=== PATIENT | female | born 1940 | race Caucasian/White ===

== ENCOUNTER → 2018-05-21 | Outpatient (CLI) | payer MEDICARE ==
--- NOTE | 2018-05-21 15:45 | RADIOLOGY REPORT (SQ) ---
EXAM DESCRIPTION: CHEST 2 VIEWS COMPLETED DATE/TIME: 05/21/2018 3:18 pm REASON FOR STUDY: R06.2 WHEEZING R06.2 WHEEZING R06.2 WHEEZING R06.2 WHEEZING COMPARISON: None. NUMBER OF VIEWS: Two view. TECHNIQUE: Frontal and lateral radiographic views of the chest acquired. LIMITATIONS: None. FINDINGS: LUNGS AND PLEURA: Diffuse interstitial prominence. Possible faint density in the lateral left mid lung. No masses or pneumothorax. No pleural effusion. Attenuated blood vessels and flattene d jonna-diaphragms. MEDIASTINUM AND HILAR STRUCTURES: No masses. No contour abnormalities. HEART AND VASCULAR STRUCTURES: Heart normal in size and contour. No evidence for failure. BONES: No acute findings. HARDWARE: None in the chest. OTHER: No other significant finding. IMPRESSION: COPD. PRESUMED CHRONIC INTERSTITIAL CHANGES. POSSIBLE FAINT EARLY INFILTRATE IN THE LA TERAL LEFT LUNG. TECHNICAL DOCUMENTATION: JOB ID: [id number] [employer]- All Rights Reserved Reading location - IP/workstation name: [email or web address]
[2018-05-21 15:47] LABS: HEMATOCRIT 30.4 % (36.0-47.0); HEMOGLOBIN 10.5 g/dL (12.0-15.5); MEAN CORPUSCULAR HEMOGLOBIN 32.6 pg (27.0-33.4); MEAN CORPUSCULAR HGB CONC 34.7 g/dL (32.0-36.0); MEAN CORPUSCULAR VOLUME 94 fl (80-97); PLATELET COUNT 249 10^3/uL (150-450); RED BLOOD COUNT 3.23 10^6/uL (3.72-5.28); RED CELL DISTRIBUTION WIDTH 14.2 % (11.5-14.0); WHITE BLOOD COUNT 14.3 10^3/uL (4.0-10.5)
[2018-05-21 16:06] LABS: ALANINE AMINOTRANSFERASE 29 U/L (9-52); ALBUMIN 3.8 g/dL (3.5-5.0); ALKALINE PHOSPHATASE 87 U/L (38-126); ANION GAP 15 (5-19); ASPARTATE AMINO TRANSFERASE 27 U/L (14-36); BILIRUBIN,DIRECT 0.8 mg/dL (0.0-0.4); BILIRUBIN,TOTAL 1.3 mg/dL (0.2-1.3); BLOOD UREA NITROGEN 20 mg/dL (7-20); CALCIUM 8.7 mg/dL (8.4-10.2); CARBON DIOXIDE 22 mmol/L (22-30); CHLORIDE 104 mmol/L (98-107); GLUCOSE 129 mg/dL (75-110); POTASSIUM 4.4 mmol/L (3.6-5.0); SODIUM 140.5 mmol/L (137-145); TOTAL PROTEIN 7.5 g/dL (6.3-8.2)
== END ==
LOC: LAB 15:20
PROVIDERS: ATTEND Nurse Practitioner Family
DX: J44.9 Chronic obstructive pulmonary disease, unspecified (principal); R06.2 Wheezing
CPT/HCPCS: 36415; 71046; 80053; 83880; 85027; 87040

== ENCOUNTER → 2018-06-03 | Outpatient (CLI) | payer MEDICARE ==
--- NOTE | 2018-06-03 12:43 | RADIOLOGY REPORT (SQ) ---
EXAM DESCRIPTION: CHEST 2 VIEWS COMPLETED DATE/TIME: 06/03/2018 10:37 am REASON FOR STUDY: CHF (I50.9) I50.9 HEART FAILURE, UNSPECIFIED COMPARISON: 05/21/2018 NUMBER OF VIEWS: Two view. TECHNIQUE: Frontal and lateral radiographic views of the chest acquired. LIMITATIONS: None. FINDINGS: LUNGS AND PLEURA: Trace of fluid in the left major fissure. No evidence of pulmonary dayanara a or pneumonia. Attenuated blood vessels and flattened jonna-diaphragms. MEDIASTINUM AND HILAR STRUCTURES: No masses. No contour abnormalities. HEART AND VASCULAR STRUCTURES: Stable cardiomegaly. No evidence for failure. BONES: No acute findings. HARDWARE: None in the chest. OTHER: No other significant finding. IMPRESSION: COPD. NO ACUTE RADIOGRAPHIC FINDING IN THE CHEST. TECHNICAL DOCUMENTATION: JOB ID: [id number] [employer]- All Rights Reserved Reading location - IP/workstation name: [email or web address]
== END ==
LOC: RAD 10:17
PROVIDERS: ATTEND Nurse Practitioner Family
DX: I50.9 Heart failure, unspecified (principal); J44.9 Chronic obstructive pulmonary disease, unspecified
CPT/HCPCS: 71046

== ENCOUNTER 2018-09-19 07:42 | Day surgery (SDC) | payer MEDICARE ==
[~2018-09-19 07:42] MED LIST: PROPOFOL INJ 200 MG/20 ML VIAL IV ONE
[2018-09-19 08:55] LABS: POTASSIUM 4.4 mmol/L (3.6-5.0)
[2018-09-19] MEDS ORDERED: ALBUTEROL SULFATE 0.083% NEB 2.5 MG/3 ML AMPUL NEB ONE (09:01)
[2018-09-19] MEDS ORDERED: ONDANSETRON HCL INJ/PF 4 MG/2 ML SDV IV PRN (10:11)
[2018-09-19] MEDS ORDERED: PROMETHAZINE HCL INJ 25 MG/1 ML VIAL IV PRN ×2 (10:11)
[2018-09-19] MEDS ORDERED: FENTANYL CITRATE INJ/PF 100 MCG/2 ML AMPUL IV PRN ×3 (10:11)
[2018-09-19] MEDS ORDERED: DIPHENHYDRAMINE HCL 50 MG/ML VIAL IV PRN (10:11)
[2018-09-19] MEDS ORDERED: MEPERIDINE HCL/PF INJ 25 MG/1 ML DISP.SYRIN IV PRN (10:11)
[2018-09-19] MEDS ORDERED: PROPOFOL INJ 200 MG/20 ML VIAL IV ONE (10:37)
--- NOTE | 2018-09-19 11:51 | Operative Report ---
Operative Report DATE OF SURGERY: 09/19/18 Operative Report: The risks, benefits and alternatives of the procedure including the risk of bleeding, perforation requiring surgery are explained to the patient in detail and informed consent is obtained. Patient is placed in the left, lateral decubital position. Timeout was called. Propofol medication is administered. A rectal examination is done which did not reveal any masses, tears or fissures. An Olympus videoscope was introduced into the patient's rectum. The scope was then carefully advanced all the way to the cecum. The cecum was identified by the usual anatomical landmarks including the ileocecal valve as well as the appendiceal office. Photodocumentation is obtained. The scope was then sequentially pulled back via the rest segments of the colon including the ascending colon, hepatic flexure, transverse colon, splenic flexure, descending colon and finally into the rectosigmoid portions of the colon. Retroflexion maneuver is performed. PREOPERATIVE DIAGNOSIS: Fecal abnormalities noted in stool positive cologuard test POSTOPERATIVE DIAGNOSIS: 3 hepatic flexure polyps to remove via snare polypectomy. Diverticulosis. Internal hemorrhoids. Mild inflammation noted on the left side of the colon status post biopsy. Retroflexion maneuver was unable to be done due to the lack of rectal distention OPERATION: Colonoscopy with snare polypectomy. Colonoscopy with biopsy SURGEON: SEAN TO ANESTHESIA: LMAC TISSUE REMOVED OR ALTERED: As noted above. COMPLICATIONS: None. ESTIMATED BLOOD LOSS: None. INTRAOPERATIVE FINDINGS: As noted above. PROCEDURE: Patient tolerated the procedure well. No immediate postprocedure complications are noted. Patient discharged in good condition. Discharge date 09/19/2018. Discharge diet: Regular. Discharge activity: Regular. 2-3-week follow-up to discuss findings. Patient is instructed to call the office or proceed to the emergency room should have any further problems or questions. I will wait on pathology. 3-5-year surveillance colonoscopy.
[2018-09-19 13:30] VITALS: BP 134/68
--- NOTE | 2018-09-19 13:33 | EKG REPORT ---
SEVERITY:- ABNORMAL ECG - ATRIAL FIBRILLATION VENTRICULAR TRIGEMINY LOW VOLTAGE THROUGHOUT : Confirmed by: Thanh Newberry MD 19-Sep-2018 13:32:42
== END 2018-09-19 12:00 | disposition home or self-care (01) ==
LOC: OROUT 07:42
PROVIDERS: ATTEND Internal Medicine Gastroenterology
DX: K57.90 Diverticulosis of intestine, part unspecified, without perforation or abscess without bleeding (principal); K63.5 Polyp of colon; R19.5 Other fecal abnormalities; Z79.899 Other long term (current) drug therapy; K64.8 Other hemorrhoids
CPT/HCPCS: 45380; 45388; 36415; 82947; 84132; 88305 ×2; 93005; 93010; J2704; A9270; 811

== ENCOUNTER → 2018-10-17 | Outpatient (CLI) | payer MEDICARE ==
--- NOTE | 2018-10-17 11:45 | RADIOLOGY REPORT (SQ) ---
EXAM DESCRIPTION: CHEST 2 VIEWS COMPLETED DATE/TIME: 10/17/2018 10:34 am REASON FOR STUDY: R06.02 SHORTNESS OF BREATH R06.02 SHORTNESS OF BREATH COMPARISON: 06/03/2018 NUMBER OF VIEWS: One view. TECHNIQUE: Single frontal radiographic view of the chest acquired. LIMITATIONS: None. FINDINGS: LUNGS AND PLEURA: No opacities, masses or pneumothorax. No pleural effusion. MEDIASTINUM AND HILAR STRUCTURES: No masses. Contour normal. HEART AND VASCULAR STRUCTURES: Heart enlarged without failure. Normal vasculature. BONES: No acute findings. HARDWARE: None in the chest. OTHER: No other significant finding. IMPRESSION: HEART ENLARGED WITHOUT FAILURE. NO OTHER SIGNIFICANT RADIOGRAPHIC FINDING IN THE CHEST. TECHNICAL DOCUMENTATION: JOB ID: [id number] [employer]- All Rights Reserved Reading location - IP/workstation name: [email or web address]
== END ==
LOC: RAD 10:19
PROVIDERS: ATTEND Nurse Practitioner Family
DX: I51.7 Cardiomegaly (principal); R06.02 Shortness of breath
CPT/HCPCS: 71046